=== PATIENT | male | born 1965 | race Caucasian/White ===

== ENCOUNTER 2023-06-09 10:01 | Outpatient (CLI) | payer BC, SELFPAY | END 2023-06-09 10:02 | disposition home or self-care (01) | PROVIDERS: PCP Family Medicine; Referring Provider Family Medicine; Visit Provider Family Medicine | DX: Z13.1 Encounter for screening for diabetes mellitus (principal); Z13.6 Encounter for screening for cardiovascular disorders | CPT/HCPCS: 80061; 82947 ==

== ENCOUNTER 2024-03-26 15:37 | Emergency (ER) | payer BC, SELFPAY ==
[2024-03-26 15:41] VITALS: BP 142/91; PULSE 70; RESP 16; TEMP 36.3; O2SAT 97; BMI 24.4
== END 2024-03-26 16:04 | disposition left against medical advice (07) ==
PROVIDERS: Emergency Provider Emergency Medicine Emergency Medical Services; PCP Family Medicine
DX: Z53.21 Procedure and treatment not carried out due to patient leaving prior to being seen by health care provider (principal)

== ENCOUNTER 2024-03-26 16:29 | Emergency (ER) | payer BC, SELFPAY ==
[2024-03-26 16:36] VITALS: BP 134/71; PULSE 81; RESP 18; TEMP 37.1; O2SAT 97; BMI 24.5
--- NOTE | 2024-03-26 16:37 | ED.GENADULT ---
HPI - General Adult General Chief complaint: Animal Bite Stated complaint: possible bat bite Time Seen by Provider: 03/26/24 16:32 History of Present Illness HPI narrative: Patient presents to the emergency department complaining of a possible bat bite. Patient was asleep in bed when a bat landed by his head. Patient swatted at the bat and is unsure if he got bit. Patient has no active open areas that he is aware of. 58-year-old man presenting to the emergency depart with concern of a bad bite. Approximally 84 hours ago was sleeping when a bat dropped onto his bed. He shooed it out ultimately swatting it and killing at. He thought that it seemed rather ?lethargic?. He buried it later that morning. No known bite. Has never been prior vaccinated for rabies. Feeling well at this time. Related Data Home Medications ?Medication ?Instructions ?Recorded ?Confirmed No Known Home Medications 02/12/23 02/12/23 Allergies Allergy/AdvReac Type Severity Reaction Status Date / Time No Known Drug Allergies Allergy Verified 02/12/23 08:52 Review of Systems Status of ROS: Reports: 6 or more systems reviewed and unremarkable except as noted in History and below [facility] Social History Smoking Status: Never smoker Do you use any of these nicotine containing products: None How often do you have a drink containing alcohol: never How often do you have six or more drinks on one occasion: Never AUDIT-C Alcohol total score: 0 Non-prescribed substance use: denies use Little interest or pleasure in doing things: several days Feeling down, depressed, or hopeless: several days Exam Narrative: Exam Narrative: Pleasant. NAD. Here with children. Skin is warm and dry. No clear evidence of insect bite. Was a question of small donte on his hand but does not really look to be a bite on evaluation. Mentating normally. Breathing easily. Const: Documenting provider has reviewed patient's vital signs: yes Course Vital Signs Vital signs: Initial Vital Signs Temperature 98.7 F 03/26/24 16:36 Temperature Source Temporal Artery Scan 03/26/24 16:36 Pulse Rate 81 03/26/24 16:36 Pulse Rhythm Regular 03/26/24 16:36 Pulse Strength 3+ Normal 03/26/24 16:36 Respiratory Rate 18 03/26/24 16:36 Blood Pressure 134/71 03/26/24 16:36 Blood Pressure Mean 92 03/26/24 16:36 Blood Pressure Position Sitting 03/26/24 16:36 Pulse Oximetry 97 03/26/24 16:36 Oxygen Delivery Method Room Air 03/26/24 16:36 Vital Signs Temperature 98.7 F 03/26/24 16:36 Pulse Rate 81 03/26/24 16:36 Respiratory Rate 18 03/26/24 16:36 Blood Pressure 134/71 03/26/24 16:36 Pulse Oximetry 97 03/26/24 16:36 Oxygen Delivery Method Room Air 03/26/24 16:36 Temperature 98.7 F 03/26/24 16:36 Pulse Rate 81 03/26/24 16:36 Respiratory Rate 18 03/26/24 16:36 Blood Pressure 134/71 03/26/24 16:36 Pulse Oximetry 97 03/26/24 16:36 Oxygen Delivery Method Room Air 03/26/24 16:36 Medications Administered Medications: Discontinued Medications Generic Name Dose Route Start Last Admin Trade Name Freq PRN Reason Stop Dose Admin Rabies Immune Globulin 1,500 unit 03/26/24 17:25 03/26/24 17:56 Rabies Immune Globulin 150 Unit/Ml Inj INFILTRATI 03/26/24 17:26 1,500 unit ONCE ONE Administration Rabies Vaccine 2.5 unit 03/26/24 17:19 03/26/24 17:47 Rabies Vaccine 2.5 Unit IM 03/26/24 17:20 2.5 unit .ONCE ONE Administration Medical Decision Making MDM Narrative Medical decision making narrative: Did discuss this case with [facility] [place] [facility] and recommendations are to proceed with rabies immunoglobulin and vaccination. Ordered for the above. Challenge will be that leaving next week for extended period of time; some months away. Given information on what he is receiving here so that I can follow-up as close as possible schedule remaining doses. See patient discharge plan for further discussion Medical Records Medical records reviewed: Yes I reviewed the patient's medical records Discharge Plan Discharge Clinical Impression: Exposure to bat without known bite Patient Disposition: Home, Self-Care Condition: Stable Additional Instructions: Please return on 03/29/2024 to the emergency department for your 2nd rabies vaccine. You would not be receiving immune globulin at that time. Recommendations are to follow up on day 7 -- so on April 02 and then April 09 for your 3rd and 4th vaccinations in the series. Try to get your 3rd vaccine as close as possible on day 7 or maybe up today 11 and then the 4th vaccination should be 7 days from the 3rd. Prescriptions: No Action No Known Home Medications Follow Up/Referrals: Jarred Craig MD [Primary Care Provider] - Stand Alone Forms: RAP Index Info Instructions
[2024-03-26] MEDS: RABIES IMMUNE GLOBULIN 150 UNIT/ML INJ 1500 UNIT INFILTRATI (17:56)
--- NOTE | 2024-03-26 18:12 | ED.NURSE ---
Immunoglobulin given in three syringes in three injection sites. One on the right deltoid, one on the right thigh, one on the right gluteal maday.
--- NOTE | 2024-03-26 18:30 | ED.NURSE ---
Vaccine provider order faxed to pharmacy
== END 2024-03-26 18:15 | disposition home or self-care (01) ==
PROVIDERS: Emergency Provider Family Medicine; PCP Family Medicine
DX: Z20.3 Contact with and (suspected) exposure to rabies (principal)
CPT/HCPCS: 90377; 90471; 90675; 99283; 99284